=== PATIENT | male | born 1980 | race Caucasian/White ===

== ENCOUNTER 2017-01-24 11:37 | Emergency (ER) | payer SELFPAY ==
[~2017-01-24] VITALS: Ht 193 cm; Wt 137.4 kg
[2017-01-24 11:38] VITALS: BP 141/93
[2017-01-24] MEDS ORDERED: OXYcodone/APAP 5/325MG TABLET PO ONE (12:30)
[2017-01-24] MEDS ORDERED: OXYcodone/APAP 5/325MG TABLET ONE (12:45)
[2017-01-24] MEDS ORDERED: KETOROLAC 30 MG/1 ML ONE (13:19)
[2017-01-24] MEDS ORDERED: KETOROLAC 30 MG/1 ML IM ONE (13:30)
== END 2017-01-24 13:32 | disposition home or self-care (01) ==
LOC: ED 13:10
DX: J01.00 Acute maxillary sinusitis, unspecified (principal); K08.89 Other specified disorders of teeth and supporting structures
CPT/HCPCS: 70450; 96372; 99284; J1885